=== PATIENT | female | born 1940 | race Caucasian/White ===

== ENCOUNTER 2016-07-15 16:05 | Emergency (ER) | payer OTHER, BC ==
[2016-07-15 16:45] VITALS: BP 115/58; PULSE 88; RESP 18; TEMP 97.9; O2SAT 95
[2016-07-15 16:45] LABS: COLOR YELLOW; LEUKOCYTE ESTERASE,URINE 1+ (NEGATIVE); NITRITE,URINE NEGATIVE (NEGATIVE); PH,URINE 5.5 (5.0-7.5)
[2016-07-15 16:57] LABS: BACTERIA 4+ /hpf (NONE SEEN)
[2016-07-15 16:58] LABS: WBC,URINE 50-182 /hpf (0-3)
--- NOTE | 2016-07-15 17:54 | UCPHY ---
H & P Time Seen by Provider: 07/15/16 17:24 Patient Type: New Smoking Status: Never smoked Constitutional: Initial Vital Signs Temperature (C) 36.6 C 07/15/16 16:36 Heart Rate 88 07/15/16 16:36 Respiratory Rate 18 07/15/16 16:36 Blood Pressure 115/58 L 07/15/16 16:36 O2 Sat (%) 95 07/15/16 16:36 O2 Delivery Mode Room Air Allergies/Adverse Reactions: amoxicillin Allergy (Verified 07/15/16 16:36) azithromycin Allergy (Verified 07/15/16 16:36) doxycycline Allergy (Verified 07/15/16 16:36) Home Medications: Medication Instructions Recorded Nitrofurantoin Macrobid [Macrobid] 100 mg PO BID #10 cap 07/15/16 Medical Decision Making - Data Points Laboratory Results: 07/15/16 16:40 Urine Color YELLOW Urine Appearance CLEAR Urine pH 5.5 (5.0-7.5) Ur Specific [place] 1.010 (1.002-1.030) Urine Protein NEGATIVE (NEGATIVE) Urine Ketones NEGATIVE (NEGATIVE) Urine Blood TRACE H (NEGATIVE) Urine Nitrate NEGATIVE (NEGATIVE) Urine Bilirubin NEGATIVE (NEGATIVE) Urine Urobilinogen 0.2 EU EU (0.2-1.0) Ur Leukocyte Esterase 1+ H (NEGATIVE) Urine RBC 1-3 /hpf /hpf (0-3) Urine WBC 50-182 /hpf H /hpf (0-3) Ur Epithelial Cells 1+ /lpf /lpf (NONE-1+) Urine Bacteria 4+ /hpf H /hpf (NONE SEEN) Ur Culture Indicated? INDICATED H (NI) Urine Glucose NEGATIVE (NEGATIVE) Departure - Departure Disposition: Home, Routine, Self-Care Clinical Impression: Cystitis Condition: Good Instructions: Urinary Tract Infection in Women (ED) Additional Instructions: Yes, he should take extra fluids Return if fever Referrals: NONE *PRIMARY CARE P,. [Primary Care Provider] - As per Instructions Prescriptions: Nitrofurantoin Macrobid [Macrobid] 100 mg PO BID #10 cap - PQRS PQRS Measurement: NA
[2016-07-15] MEDS ORDERED: NITROFURANTOIN MACROBID 100 MG CAP PO ONE (17:56)
== END 2016-07-15 18:10 | disposition home or self-care (01) ==
LOC: EDBD 16:05 → CED 16:05
DX: N30.00 Acute cystitis without hematuria (principal)
CPT/HCPCS: 81003-PO; 81015-PO; G0463-PO